=== PATIENT | female | born 1980 | race Caucasian/White ===

== ENCOUNTER 2018-01-08 23:41 | Emergency (ER) | payer OTHER ==
[2018-01-09 00:10] VITALS: TEMP 97.7; BMI 24.5
--- NOTE | 2018-01-09 00:47 | PDOC ---
History of Present Illness - General History Source: Patient Exam Limitations: No Limitations - History of Present Illness Initial Comments: 01/09/18 02:43 Patient is a 37 year old female with a significant past medical history of recurrent migraines, ovarian cysts, and renal cysts, who presents to the ED with complains of head pain that began last night while at home. Patient reports experiencing top sided head pain as well as left maxillary teeth pain that she states has gradually increased in intensity since beginning last night. She reports taking x2 advil 20 mg for pain with no relief. Patient reports being previously prescribed and taking imitrex for past migraines that she states offers slight relief. Denies chest pain, Sob. Denies nausea, vomiting. Denies contact with sick individuals, out of state travelling. Denies trauma to affected area. Denies any other symptoms. Allergies: None Social history: Lives with son, No smoking. No alcohol. No illicit drugs. Surgical history: None PMD: None <Negrito Reddy - Last Filed: 01/09/18 02:43> <Nelly Stewart - Last Filed: 01/09/18 05:02> - General Chief Complaint: Headache Stated Complaint: HEADACHE Time Seen by Provider: 01/09/18 00:43 Past History <Negrito Reddy - Last Filed: 01/09/18 02:43> - Suicide/Smoking/Psychosocial Hx Smoking History: Never smoked Have you smoked in the past 12 months: No Information on smoking cessation initiated: No Hx Alcohol Use: No Drug/Substance Use Hx: No <Nelly Stewart - Last Filed: 01/09/18 05:02> - Past Medical History Allergies/Adverse Reactions: Allergies Allergy/AdvReac Type Severity Reaction Status Date / Time No Known Allergies Allergy Verified 01/09/18 00:10 Review of Systems - Review of Systems Able to Perform ROS?: Yes Comments:: 01/09/18 02:43 GENERAL/CONSTITUTIONAL: No fever or chills. No weakness. HEAD, EYES, EARS, NOSE AND THROAT: +Head pain. +Left sided upper jaw pain. No change in vision. No ear pain or discharge. No sore throat. CARDIOVASCULAR: No chest pain or shortness of breath. RESPIRATORY: No cough, wheezing, or hemoptysis. GASTROINTESTINAL: No nausea, vomiting, diarrhea or constipation. GENITOURINARY: No dysuria, frequency, or change in urination. MUSCULOSKELETAL: No joint or muscle swelling or pain. No neck or back pain. SKIN: No rash NEUROLOGIC: No headache, vertigo, loss of consciousness, or change in strength/ sensation. ENDOCRINE: No increased thirst. No abnormal weight change. HEMATOLOGIC/LYMPHATIC: No anemia, easy bleeding, or history of blood clots. ALLERGIC/IMMUNOLOGIC: No hives or skin allergy. <Negrito Reddy - Last Filed: 01/09/18 02:43> *Physical Exam - Vital Signs Last Vital Signs Temp Pulse Resp BP Pulse Ox 97.7 F 64 18 121/78 98 01/09/18 00:09 01/09/18 00:09 01/09/18 00:09 01/09/18 00:09 01/09/18 00:09 - Physical Exam Comments: 01/09/18 02:43 GENERAL: Awake, alert, and fully oriented, in no acute distress HEAD: No signs of trauma EYES: PERRLA, EOMI, sclera anicteric, conjunctiva clear ENT: Auricles normal inspection, hearing grossly normal, nares patent, oropharynx clear without exudates. Moist mucosa NECK: Normal ROM, supple, no lymphadenopathy, JVD, or masses LUNGS: Breath sounds equal, clear to auscultation bilaterally. No wheezes, and no crackles HEART: Regular rate and rhythm, normal S1 and S2, no murmurs, rubs or gallops ABDOMEN: Soft, nontender, normoactive bowel sounds. No guarding, no rebound. No masses EXTREMITIES: Normal range of motion, no edema. No clubbing or cyanosis. No cords, erythema, or tenderness NEUROLOGICAL: Cranial nerves II through XII grossly intact. Normal speech, normal gait SKIN: Warm, Dry, normal turgor, no rashes or lesions noted. <Negrito Reddy - Last Filed: 01/09/18 02:43> - Vital Signs Last Vital Signs Temp Pulse Resp BP Pulse Ox 97.7 F 64 18 121/78 98 01/09/18 00:09 01/09/18 00:09 01/09/18 00:09 01/09/18 00:09 01/09/18 00:09 <Nelly Stewart - Last Filed: 01/09/18 05:02> ED Treatment Course - ADDITIONAL ORDERS Additional order review: Laboratory Results 01/09/18 01:19 Urine Color Yellow Urine Appearance Slcloudy Urine pH 6.0 Ur Specific Rock 1.018 Urine Protein Negative Urine Glucose (UA) Negative Urine Ketones Negative Urine Blood 3+ H Urine Nitrite Negative Urine Bilirubin Negative Urine Urobilinogen Negative Ur Leukocyte Esterase Trace Urine WBC (Auto) 9 Urine RBC (Auto) 63 Ur Epithelial Cells Rare Urine Mucus Rare Urine HCG, Qual Negative - Medications Given in the ED: ED Medications Discontinued Medications Generic Name Dose Route Start Last Admin Trade Name Seda PRN Reason Stop Dose Admin Acetaminophen 1,000 mg 01/09/18 00:55 01/09/18 01:39 Tylenol - PO 01/09/18 00:56 1,000 mg ONCE ONE Administration Diphenhydramine HCl 50 mg 01/09/18 00:55 01/09/18 01:39 Benadryl - PO 01/09/18 00:56 50 mg ONCE ONE Administration Sumatriptan Succinate 6 mg 01/09/18 00:55 01/09/18 01:39 Imitrex Injection - SQ 01/09/18 00:56 6 mg ONCE ONE Administration <Negrito Reddy - Last Filed: 01/09/18 02:43> Medical Decision Making - Medical Decision Making 01/09/18 05:00 Patient Name: CRYSTAL CRAIG THIS IS A PRELIMINARY REPORT FROM IMAGING PATIENT INSURANCE CLERK DATE OF SERVICE: 2018-01-09 03:17:18 IMAGES: 237 EXAM: CT HEAD CT WITHOUT CONTRAST HISTORY: Headache COMPARISON: None. FINDINGS: Brain parenchyma is normal in attenuation with no mass or hematoma. There is no midline shift. Mahoney and white matter differentiation is normal. Ventricles are normal. Sulci and extra-axial CSF spaces are normal. Intracranial vascular structures are normal in attenuation. There is no calvarial fracture. Paranasal sinuses are normally aerated. IMPRESSION: Normal head THIS DOCUMENT HAS BEEN ELECTRONICALLY SIGNED Pt has a sinus headache. SHe is feeling better I will have her follow with ENT <Nelly Stewart - Last Filed: 01/09/18 05:02> *DC/Admit/Observation/Transfer - Attestations Scribe Attestion: 01/09/18 02:43 Documentation prepared by Negrito Reddy, acting as medical physics professor for Nelly Stewart MD/DO. <Negrito Reddy - Last Filed: 01/09/18 02:43> - Discharge Dispostion Admit: No <Nelly Stewart - Last Filed: 01/09/18 05:02> Diagnosis at time of Disposition: Sinusitis, Headache - Discharge Dispostion Disposition: HOME Condition at time of disposition: Improved - Referrals Referrals: Haseeb Barton MD [Staff Physician] - - Patient Instructions Printed Discharge Instructions: Amoxicillin Does Not Appear Effective for Acute Maxillary Sinusitis, DI for Sinus Headache - Post Discharge Activity Forms/Work/School Notes: Back to Work
[2018-01-09] MEDS ORDERED: SUMATRIPTAN SUCCINATE 6 MG/0.5 ML VIAL SQ ONE (00:55)
[2018-01-09] MEDS ORDERED: ACETAMINOPHEN 500 MG TABLET (FP) PO ONE (00:55)
[2018-01-09] MEDS ORDERED: diphenhydrAMINE HCL 25 MG CAPSULE (FP) PO ONE ×2 (00:55→01:27)
[2018-01-09] MEDS ORDERED: ACETAMINOPHEN 325 MG TABLET (FP) ONE (01:26)
[2018-01-09] MEDS ORDERED: SUMATRIPTAN SUCCINATE 6 MG/0.5 ML VIAL ONE (01:27)
[2018-01-09 01:30] LABS: URINE APPEARANCE SLCLOUDY; URINE BILIRUBIN NEGATIVE (<2.0 mg/dL); URINE COLOR YELLOW; URINE GLUCOSE (UA) NEGATIVE (NEGATIVE); URINE KETONE NEGATIVE (NEGATIVE); URINE LEUK ESTERASE TRACE (NEGATIVE); URINE NITRITE NEGATIVE (NEGATIVE); URINE PROTEIN NEGATIVE (NEGATIVE); URINE UROBILINOGEN NEGATIVE mg/dL (0.2-1.0)
[2018-01-09 01:36] LABS: HCG,QUALITATIVE URINE NEGATIVE
[2018-01-09 01:37] LABS: EPI CELLS RARE /HPF (FEW); URINE MUCUS RARE
[2018-01-09 05:21] VITALS: BP 126/72; PULSE 85
== END 2018-01-09 07:04 | disposition home or self-care (01) ==
LOC: JER 23:41
PROC: 3E023GC Introduction of Other Therapeutic Substance into Muscle, Percutaneous Approach (ICD-10-PCS; principal; 2018-01-08)
DX: G43.909 Migraine, unspecified, not intractable, without status migrainosus (principal); J01.00 Acute maxillary sinusitis, unspecified
CPT/HCPCS: 70450-TC; 70486-TC; 81003; 81015; 84703; 96372; 99281-25; 99283-25

== ENCOUNTER 2018-12-11 15:01 | Emergency (ER) | payer OTHER ==
[2018-12-11 15:05] VITALS: BP 103/67; PULSE 80; TEMP 98.3; BMI 26.0
[2018-12-11] MEDS ORDERED: SODIUM CHLORIDE 1,000 ML IV STA (16:14)
[2018-12-11] MEDS ORDERED: METOCLOPRAMIDE HCL INJECTION 10 MG/2 ML VIAL IVPB ONE (16:14)
[2018-12-11] MEDS ORDERED: ACETAMINOPHEN 1000 MG/100 ML VIAL (NON FORMULARY) IVPB ONE (16:15)
[2018-12-11] MEDS ORDERED: METOCLOPRAMIDE HCL INJECTION 10 MG/2 ML VIAL ONE (16:30)
[2018-12-11] MEDS ORDERED: ACETAMINOPHEN INJECTION 100 ML IVPB ONE (16:32)
--- NOTE | 2018-12-11 16:36 | PDOC ---
History of Present Illness - General Chief Complaint: Headache Stated Complaint: HEADACHE Time Seen by Provider: 12/11/18 15:32 History Source: Patient Exam Limitations: No Limitations Past History - Travel Traveled outside of the country in the last 30 days: No Close contact w/someone who was outside of country & ill: No - Past Medical History Allergies/Adverse Reactions: Allergies Allergy/AdvReac Type Severity Reaction Status Date / Time No Known Allergies Allergy Verified 12/11/18 15:05 Home Medications: Ambulatory Orders NK [No Known Home Medication] 01/19/18 COPD: No - Suicide/Smoking/Psychosocial Hx Smoking History: Never smoked Have you smoked in the past 12 months: No Hx Alcohol Use: No Drug/Substance Use Hx: No Substance Use Type: None Review of Systems - Review of Systems Able to Perform ROS?: Yes Comments:: 12/11/18 19:52 CONSTITUTIONAL: Absent: fever, chills, diaphoresis, generalized weakness, malaise, loss of appetite HEENT: Absent: rhinorrhea, nasal congestion, throat pain, throat swelling, difficulty swallowing, mouth swelling, ear pain, eye pain, visual Changes CARDIOVASCULAR: Absent: chest pain, loss of consciousness, palpitations, irregular heart rate, peripheral edema RESPIRATORY: Absent: cough, shortness of breath, dyspnea with exertion, orthopnea, wheezing, stridor, hemoptysis GASTROINTESTINAL: Absent: abdominal pain, abdominal distension, nausea, vomiting, diarrhea, constipation, melena, hematochezia GENITOURINARY: Absent: dysuria, frequency, urgency, hesitancy, hematuria, flank pain, genital pain MUSCULOSKELETAL: Absent: myalgia, arthralgia, joint swelling SKIN: Absent: rash, itching, pallor NEUROLOGIC: Present: headache Absent: focal weakness or paresthesias, dizziness, unsteady gait, seizure, mental status changes, bladder or bowel incontinence PSYCHIATRIC: Absent: anxiety, depression, suicidal or homicidal ideation, hallucinations. Is the patient limited Azeri proficient: No *Physical Exam - Vital Signs Last Vital Signs Temp Pulse Resp BP Pulse Ox 98.3 F 80 18 103/67 98 12/11/18 15:03 12/11/18 15:03 12/11/18 15:03 12/11/18 15:03 12/11/18 15:03 - Physical Exam Comments: 12/11/18 19:52 GENERAL: Well developed, well nourished. Awake and alert. No acute distress. HEENT: Normocephalic, atraumatic. PERRLA, EOMI. No conjunctival pallor. Sclera are non- icteric. Moist mucous membranes. Oropharynx is clear. NECK: Supple. Full ROM. (-)Brudinski, kernig signs. No JVD. Carotid pulses 2+ and symmetric, without bruits. No thyromegaly. No lymphadenopathy. MUSCULOSKELETAL TTP at the occiput insertion of the trapizius muscles. Normal range of motion at all joints. No bony deformities or tenderness. No CVA tenderness. EXTREMITIES: No cyanosis. No clubbing. No edema. No calf tenderness. SKIN: Warm and dry. Normal capillary refill. No rashes. No jaundice. NEUROLOGICAL: Alert, awake, appropriate. Cranial nerves 2-12 intact. No deficits to light touch and temperature in face, upper extremities and lower extremities. No motor deficits in the in face, upper extremities and lower extremities. Normoreflexic in the upper and lower extremities. Normal speech. Toes are down- going bilaterally. Gait is normal without ataxia. PSYCHIATRIC: Cooperative. Good eye contact. Appropriate mood and affect. Medical Decision Making - Medical Decision Making 12/11/18 19:51 The patient is a 37-year-old female with past medical history of headaches, who presents to the ER for evaluation of a headache. She states that she has had this headache since . It is gradually gotten worse over the last 3 days and has not gotten better with home medication. She states that her headaches usually last a day and resolve on their own. She currently rates the pain a 9 out of 10. Admits to associated dizziness. Denies fevers, chills, neck pain, lightheadedness, nausea, vomiting and diarrhea. A/P: headache patient is neurologically intact with no focal findings. Tenderness to palpation of the occiput insertion of the trapezius muscles. IV inserted. Patient given Reglan, Benadryl and IV Tylenol. CT scan obtained given length of symptoms. No acute intracranial pathology noted. Toradol given after CT results. Patient reports relief of symptoms with Toradol. Most likely a tension headache. Discharge home with neurology follow-up. I discussed the physical exam findings, ancillary test results and final diagnoses with the patient. I answered all of the patient's questions. The patient was satisfied with the care received and felt comfortable with the discharge plan and treatment plan. The Patient agrees to follow up with the primary care physician/specialist within 24-72 hours. Return precautions were given. *DC/Admit/Observation/Transfer Diagnosis at time of Disposition: Headache Qualifiers: Headache type: unspecified Headache chronicity pattern: acute headache Intractability: not intractable Qualified Code(s): R51 - Headache - Discharge Dispostion Disposition: HOME Condition at time of disposition: Stable Decision to Admit order: No - Referrals Referrals: Edmundo Dorado DO [Staff Physician] - - Patient Instructions Printed Discharge Instructions: DI for Headache Additional Instructions: You were evaluated for your headache today Your CT scan of your head was normal Take ibuprofen 600mg every 6 hours for the pain not to exceed 3,00mg a day Warm compresses to the neck may help Please follow up with neurology. A referral has been provided Return to the emergency department for worsening headache, vomiting, lightheadedness, or any changes in your symptoms Te evaluaron por tu dolor de navid hoy Cuevas tomografa computarizada de cuevas navid fue normal [place] ibuprofeno 600 mg cada 6 horas para que el dolor no exceda los 3,00 mg por da. Las compresas tibias en el maxine pueden ayudar Por favor siga con la neurologa. Se marte proporcionado luis angel referencia Regrese al departamento de emergencias para empeorar el dolor de navid, los vmitos, el mareo o cualquier cambio en glenna sntomas. Print Language: TURKMEN - Post Discharge Activity Forms/Work/School Notes: Back to Work
[2018-12-11] MEDS ORDERED: KETOROLAC TROMETHAMINE 30 MG/1 ML VIAL IVPUSH ONE (19:24)
[2018-12-11] MEDS ORDERED: KETOROLAC TROMETHAMINE 30 MG/1 ML VIAL ONE (19:28)
== END 2018-12-11 20:12 | disposition home or self-care (01) ==
LOC: JERFT 15:01 → JER 15:01 → JERFT 20:12
PROC: 3E0337Z Introduction of Electrolytic and Water Balance Substance into Peripheral Vein, Percutaneous Approach (ICD-10-PCS; principal; 2018-12-11)
PROC: 3E033GC Introduction of Other Therapeutic Substance into Peripheral Vein, Percutaneous Approach (ICD-10-PCS; 2018-12-11)
PROC: 3E033GC Introduction of Other Therapeutic Substance into Peripheral Vein, Percutaneous Approach (ICD-10-PCS; 2018-12-11)
PROC: 3E033NZ Introduction of Analgesics, Hypnotics, Sedatives into Peripheral Vein, Percutaneous Approach (ICD-10-PCS; 2018-12-11)
PROC: 3E0333Z Introduction of Anti-inflammatory into Peripheral Vein, Percutaneous Approach (ICD-10-PCS; 2018-12-11)
DX: R51 Headache (principal)
CPT/HCPCS: 70450-TC; 84703; 96361; 96374; 96375; 99282-25; J0131; J7030

== ENCOUNTER 2021-01-28 12:38 | Emergency (ER) | payer OTHER ==
[2021-01-28 12:44] VITALS: BMI 24.1
[2021-01-28] MEDS ORDERED: SODIUM CHLORIDE 0.9% 500 ML INFUS.BAG IV ONE (13:14)
[2021-01-28 13:42] LABS: BASO % 0.3 % (0-2.0); EOS % 1.5 % (0-4.5); HEMATOCRIT 39.9 % (32.4-45.2); HEMOGLOBIN 13.8 GM/dL (10.7-15.3); LYMPH % 8.8 % (8-40); MCH 29.4 pg (25.7-33.7); MCHC 34.5 g/dl (32.0-36.0); MEAN CELL VOLUME 85.1 fl (80-96); MEAN PLT VOLUME 8.4 fl (7.5-11.1); MONO % 5.8 % (3.8-10.2); NEUT % 83.6 % (42.8-82.8); PLATELET COUNT 228 K/MM3 (134-434); RBC 4.69 M/mm3 (3.60-5.2); RDW 12.9 % (11.6-15.6); WHITE BLOOD COUNT 13.7 K/mm3 (4.0-10.0)
[2021-01-28 14:14] LABS: CHLORIDE 111 mmol/L (98-107); SODIUM 140 mmol/L (136-145)
[2021-01-28 14:18] LABS: ANION GAP 6 MMOL/L (8-16); CALCIUM 8.1 mg/dL (8.5-10.1); CO2 22 mmol/L (21-32); GLUCOSE,RANDOM 113 mg/dL (74-106)
[2021-01-28 14:19] LABS: ALBUMIN 3.3 g/dl (3.4-5.0)
[2021-01-28 14:21] LABS: SGPT/ALT 25 U/L (13-61)
[2021-01-28] MEDS ORDERED: METOCLOPRAMIDE HCL INJECTION 10 MG/2 ML VIAL IVPB ONE (14:21)
[2021-01-28 14:22] LABS: CREATININE 0.5 mg/dL (0.55-1.3); SGOT/AST 18 U/L (15-37)
[2021-01-28 14:23] LABS: BILIRUBIN,TOTAL 0.2 mg/dL (0.2-1); TOT PROT 6.4 g/dl (6.4-8.2)
[2021-01-28] MEDS ORDERED: METOCLOPRAMIDE HCL INJECTION 10 MG/2 ML VIAL ONE (14:24)
[2021-01-28 14:25] LABS: ALK PHOS 81 U/L (45-117)
[2021-01-28 15:02] LABS: LIPASE 77 U/L (73-393)
[2021-01-28 15:19] LABS: PH,URINE 5.5 (5.0-8.0); URINE APPEARANCE CLEAR; URINE BILIRUBIN NEGATIVE (NEGATIVE); URINE COLOR YELLOW; URINE GLUCOSE (UA) NEGATIVE (NEGATIVE); URINE KETONE NEGATIVE (NEGATIVE); URINE LEUK ESTERASE NEGATIVE (NEGATIVE); URINE NITRITE NEGATIVE (NEGATIVE); URINE PROTEIN NEGATIVE (NEGATIVE); URINE UROBILINOGEN 0.2 mg/dL (0.2-1.0)
[2021-01-28 15:23] LABS: HCG,QUALITATIVE URINE Negative
[2021-01-28] MEDS ORDERED: KETOROLAC TROMETHAMINE 30 MG/1 ML VIAL IVPUSH ONE (16:23)
[2021-01-28] MEDS ORDERED: KETOROLAC TROMETHAMINE 30 MG/1 ML VIAL ONE (16:32)
[2021-01-28 16:42] VITALS: BP 99/68; PULSE 67; TEMP 98
== END 2021-01-28 17:22 | disposition home or self-care (01) ==
LOC: JER 12:38
PROC: 3E0333Z Introduction of Anti-inflammatory into Peripheral Vein, Percutaneous Approach (ICD-10-PCS; principal; 2021-01-28)
PROC: 3E033GC Introduction of Other Therapeutic Substance into Peripheral Vein, Percutaneous Approach (ICD-10-PCS; 2021-01-28)
DX: G43.919 Migraine, unspecified, intractable, without status migrainosus (principal); R10.13 Epigastric pain
CPT/HCPCS: 36415; 71046-TC-FY; 80053; 81003; 82550; 83690; 84484; 84703; 85025; 87086; 93005; 93010; 99285-25; C9803; U0003; U0005

== ENCOUNTER 2022-06-15 04:48 | Day surgery (SDC) | payer OTHER ==
[2022-06-12 15:03] VITALS: BMI 27.8
[2022-06-15] MEDS ORDERED: ONDANSETRON 4 MG/2 ML VIAL IVPUSH PRN (07:26)
[2022-06-15] MEDS ORDERED: LACTATED RINGERS SOLUTION 1,000 ML IV SCH (07:30)
[2022-06-15] MEDS ORDERED: IBUPROFEN 400 MG TABLET (FP) PO PRN (07:56)
[2022-06-15] MEDS ORDERED: ACETAMINOPHEN 325 MG TABLET (FP) PO PRN (07:56)
[2022-06-15] MEDS ORDERED: PROPOFOL 20 ML ONE (09:33)
[2022-06-15] MEDS ORDERED: LIDOCAINE HCL/PF (2%) 40 MG/2 ML VIAL ONE (09:34)
[2022-06-15] MEDS ORDERED: MIDAZOLAM HCL 2 MG/2 ML SINGLE DOSE VIAL ONE (09:35)
[2022-06-15] MEDS ORDERED: ONDANSETRON 4 MG/2 ML VIAL ONE (10:27)
[2022-06-15] MEDS ORDERED: DEXAMETHASONE SOD PHOSPHATE 4 MG/1 ML VIAL ONE (10:27)
[2022-06-15 12:58] VITALS: RESP 18
[2022-06-15 13:54] VITALS: BP 109/65; PULSE 69; TEMP 98
== END 2022-06-15 14:10 | disposition home or self-care (01) ==
LOC: JASU-SURG 04:48
PROVIDERS: ATTEND Obstetrics & Gynecology
PROC: 0UJD8ZZ Inspection of Uterus and Cervix, Via Natural or Artificial Opening Endoscopic (ICD-10-PCS; 2022-06-15)
PROC: 0UB98ZZ Excision of Uterus, Via Natural or Artificial Opening Endoscopic (ICD-10-PCS; principal; 2022-06-15 09:30)
PROC: 0UDB7ZX Extraction of Endometrium, Via Natural or Artificial Opening, Diagnostic (ICD-10-PCS; 2022-06-15 09:30)
DX: D25.0 Submucous leiomyoma of uterus (principal); N84.0 Polyp of corpus uteri
CPT/HCPCS: 81025; 88305-TC; 94760

== ENCOUNTER 2022-07-21 13:34 | Emergency (ER) | payer OTHER ==
[2022-07-21 13:42] VITALS: BP 128/74; PULSE 82; RESP 16; TEMP 97.9; BMI 26.4
[2022-07-21] MEDS ORDERED: ACETAMINOPHEN 1000 MG/100 ML BAG IVPB ONE (14:31)
[2022-07-21] MEDS ORDERED: SODIUM CHLORIDE 0.9% 500 ML INFUS.BAG IV ONE (14:32)
[2022-07-21 15:43] LABS: EOS % 1.9 % (0-4.5); HEMATOCRIT 38.5 % (32.4-45.2); HEMOGLOBIN 13.2 GM/dL (10.7-15.3); LYMPH % 32.4 % (8-40); MCH 29.5 pg (25.7-33.7); MCHC 34.4 g/dl (32.0-36.0); MEAN CELL VOLUME 85.7 fl (80-96); MEAN PLT VOLUME 8.7 fl (7.5-11.1); MONO % 9.3 % (3.8-10.2); NEUT % 55.4 % (42.8-82.8); PLATELET COUNT 218 10^3/uL (134-434); RBC 4.49 M/mm3 (3.60-5.2); RDW 13.4 % (11.6-15.6); WHITE BLOOD COUNT 4.6 K/mm3 (4.0-10.0)
[2022-07-21 16:09] LABS: CALCIUM 8.5 mg/dL (8.5-10.1)
[2022-07-21 16:10] LABS: ALBUMIN 3.7 g/dl (3.4-5.0); BLOOD UREA NITROGEN 10.5 mg/dL (7-18)
[2022-07-21 16:13] LABS: CREATININE 0.6 mg/dL (0.55-1.3)
[2022-07-21 16:15] LABS: BILIRUBIN,TOTAL 0.2 mg/dL (0.2-1); TOT PROT 6.9 g/dl (6.4-8.2)
== END 2022-07-21 17:42 | disposition home or self-care (01) ==
LOC: JER 13:34
PROC: 3E033GC Introduction of Other Therapeutic Substance into Peripheral Vein, Percutaneous Approach (ICD-10-PCS; principal; 2022-07-21)
DX: N93.9 Abnormal uterine and vaginal bleeding, unspecified (principal)
CPT/HCPCS: 36415; 76830-TC; 80053; 84703; 85025; 86850; 86900; 86901; 99284-25